=== PATIENT | male | born 1955 | race Hispanic/Latino ===

== ENCOUNTER 2017-01-25 19:12 | Emergency (ER) | payer OTHER ==
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
[2017-01-26] MEDS ORDERED: TORADOL ONE (00:08)
[2017-01-26] MEDS ORDERED: TORADOL IM ONE (00:12)
[2017-01-26 00:23] VITALS: BP 152/95
== END 2017-01-26 00:27 | disposition home or self-care (01) ==
LOC: ED 19:12
DX: M72.2 Plantar fascial fibromatosis (principal); L84 Corns and callosities
CPT/HCPCS: 96372; 99282; J1885